=== PATIENT | female | born 2005 | race Hispanic/Latino ===

== ENCOUNTER 2025-04-29 15:39 | Outpatient (CLI) | payer OTHER | END 2025-04-29 15:40 | disposition home or self-care (01) | LOC: CSHRAD 15:39 | PROVIDERS: ATTEND Registered Nurse | DX: R55 Syncope and collapse (principal); R94.31 Abnormal electrocardiogram [ECG] [EKG] | CPT/HCPCS: 71046; 93005; 93010 ==